=== PATIENT | female | born 1945 | race Caucasian/White ===

== ENCOUNTER → 2020-02-22 | Outpatient (REF) | payer MEDICARE | LOC: M LAB REF 17:05 | PROVIDERS: ATTEND Physician Assistant | DX: D23.71 Other benign neoplasm of skin of right lower limb, including hip (principal) | CPT/HCPCS: 11102; 88305; G0463 ==

== ENCOUNTER → 2020-04-19 | Outpatient (REF) | payer MEDICARE | LOC: M LAB REF 17:05 | PROVIDERS: ATTEND Dermatology | DX: L90.5 Scar conditions and fibrosis of skin (principal) ==

== ENCOUNTER → 2021-12-11 | Outpatient (CLI) | payer MEDICARE | LOC: M PLAIMG 10:56 | PROVIDERS: ATTEND Student in an Organized Health Care Education/Training Program | DX: G30.1 Alzheimer's disease with late onset (principal); F02.80 Dementia in other diseases classified elsewhere, unspecified severity, without behavioral disturbance, psychotic disturbance, mood disturbance, and anxiety ==

== ENCOUNTER → 2023-01-20 | Outpatient (CLI) | payer MEDICARE ==
[~2023-01-20] MED LIST: DONE1TAB64 PO; FLUT50SP17 INH; LEVO88TA3 PO; LOSA50TA28 PO; MEMA10TA19 PO; MONT10TA97 PO; PANT40TA29 PO; SUCR1ORA PO; TREL1AER INH; ZOLO100T PO
== END ==
LOC: M ONCR 08:57
PROVIDERS: ATTEND General Practice
DX: C49.11 Malignant neoplasm of connective and soft tissue of right upper limb, including shoulder (principal); Z86.03 Personal history of neoplasm of uncertain behavior; Z15.09 Genetic susceptibility to other malignant neoplasm; Z71.2 Person consulting for explanation of examination or test findings; Z79.51 Long term (current) use of inhaled steroids; Z79.890 Hormone replacement therapy; Z79.899 Other long term (current) drug therapy; Z80.0 Family history of malignant neoplasm of digestive organs; Z80.3 Family history of malignant neoplasm of breast; Z80.41 Family history of malignant neoplasm of ovary; Z90.710 Acquired absence of both cervix and uterus

== ENCOUNTER → 2023-02-03 | Outpatient (CLI) | payer MEDICARE ==
[~2023-02-03] MED LIST changes: +ISOVUE-370 76% 100ML VIAL As Ordered ONE
== END ==
LOC: M RAD 13:12
PROVIDERS: ATTEND General Practice
DX: C49.11 Malignant neoplasm of connective and soft tissue of right upper limb, including shoulder (principal)
CPT/HCPCS: 71275; Q9967

== ENCOUNTER 2023-02-09 11:56 | Emergency (ER) | payer MEDICARE ==
[~2023-02-09 11:56] MED LIST changes: -ISOVUE-370 76% 100ML VIAL As Ordered ONE
[2023-02-09 12:33] LABS: VENOUS HCO3 21.7 MMOL/L (23.0-27.0); VENOUS O2 SATURATION 57.5 % (60.0-80.0); VENOUS PARTIAL PRESSURE CO2 42.1 mmHg (38.0-50.0); VENOUS PARTIAL PRESSURE O2 32.8 mmHg (30.0-50.0); VENOUS STANDARD HCO3 20.6 MMOL/L
[2023-02-09 12:38] LABS: BASO # 0.1 10^3/uL (0.0-0.2); BASO % 0.6 % (0.0-1.0); EOS # 0.2 10^3/uL (0.0-0.5); EOS % 1.6 % (0.0-3.0); HEMOGLOBIN 7.9 g/dl (12.0-15.5); LYMPH # 0.8 10^3/uL (1.5-5.0); LYMPH % 7.9 % (24.0-44.0); MEAN CORPUSCULAR HEMOGLOBIN 27.4 pg (27.0-33.0); MEAN CORPUSCULAR HGB CONC 31.6 g/dl (32.0-36.5); MEAN CORPUSCULAR VOLUME 86.8 fl (80.0-96.0); MONO # 0.8 10^3/uL (0.0-0.8); MONO % 7.4 % (2.0-8.0); NEUTROPHILS # 8.5 10^3/uL (1.5-8.5); NEUTROPHILS % 81.8 % (36.0-66.0); PLATELET COUNT, AUTOMATED 335 10^3/uL (150-450); RED BLOOD COUNT 2.88 10^6/uL (4.00-5.40); WHITE BLOOD COUNT 10.3 10^3/uL (4.0-10.0)
[2023-02-09 13:22] LABS: ALBUMIN 3.2 G/DL (3.2-5.2); ALKALINE PHOSPHATASE 119 U/L (46-116); ALT/SGPT 12 U/L (7.0-40); AST/SGOT 18 U/L (<34); BILIRUBIN,DIRECT 0.1 MG/DL (<0.4); BILIRUBIN,TOTAL 0.4 MG/DL (0.3-1.2); BLOOD UREA NITROGEN 35 MG/DL (9-23); CALCIUM LEVEL 9.6 MG/DL (8.3-10.6); CARBON DIOXIDE LEVEL 20 MMOL/L (20-31); CHLORIDE LEVEL 108 MMOL/L (98-107); CK-MB VALUE MASS 1.2 NG/ML (<3.6); CPK CREATINE PHOSPHOKINASE 34 U/L (34-145); CREATININE FOR GFR 1.13 MG/DL (0.55-1.30); GLOMERULAR FILTRATION RATE 49.4 (>39); GLUCOSE, FASTING 82 MG/DL (74-106); MB/CK RELATIVE INDEX 3.52 (< OR =4); POTASSIUM SERUM 4.2 MMOL/L (3.5-5.1); SODIUM LEVEL 140 MMOL/L (136-145); TOTAL PROTEIN 6.5 G/DL (5.7-8.2)
[2023-02-09 13:24] LABS: THYROID STIMULATING HORMONE 0.826 uIU/ML (0.55-4.78)
[2023-02-09 13:31] LABS: INR 1.12; PROTHROMBIN TIME 14.1 SECONDS (12.5-14.5)
[2023-02-09 14:02] LABS: PROCALCITONIN <0.04 ng/ml
[2023-02-09 14:27] LABS: IRON (FE) 21 UG/DL (50-170); PERCENT SATURATION 7.3 % (13.2-45.0); TOTAL IRON BINDING CAPACITY 286 UG/DL (250-425)
[2023-02-09 14:28] LABS: FERRITIN 195.7 NG/ML (7.3-270.7)
[2023-02-09 14:29] LABS: VITAMIN B12 LEVEL 538 PG/ML (211-911)
[2023-02-09 17:14] VITALS: BP 117/55; TEMP 97.7; O2SAT 97
[2023-02-09 17:29] VITALS: BP 121/58; TEMP 97.3; O2SAT 96
[2023-02-09 18:27] VITALS: BP 127/59; TEMP 97.3; O2SAT 99
[2023-02-09 18:48] VITALS: BP 111/52; TEMP 97.2; O2SAT 98
[2023-02-09 20:07] VITALS: BP 123/60; TEMP 98.4; O2SAT 98
[2023-02-16] MEDS ORDERED: METR0.7526 TOP (09:32)
== END 2023-02-09 20:07 | disposition home or self-care (01) ==
LOC: M ED 11:56
DX: D64.9 Anemia, unspecified (principal); W19.XXXA Unspecified fall, initial encounter; R00.1 Bradycardia, unspecified; F03.90 Unspecified dementia, unspecified severity, without behavioral disturbance, psychotic disturbance, mood disturbance, and anxiety; I10 Essential (primary) hypertension; K21.9 Gastro-esophageal reflux disease without esophagitis; J45.909 Unspecified asthma, uncomplicated; Z87.891 Personal history of nicotine dependence; Z88.0 Allergy status to penicillin; Z79.811 Long term (current) use of aromatase inhibitors; Z79.899 Other long term (current) drug therapy; Z79.810 Long term (current) use of selective estrogen receptor modulators (SERMs); Z92.3 Personal history of irradiation
CPT/HCPCS: 36415; 70450; 71045; 71250; 72125; 80048; 80076; 82550; 82553; 82607; 82728; 82803; 83550; 83605; 83880; 84145; 84443; 84484; 85025; 85046; 85610; 86850; 86900; 86901; 86920; 87040; 87486; 87581; 87633; 87798; 93005; 93041; 94760; 99285; P9016

== ENCOUNTER → 2023-02-18 | Outpatient (RCR) | payer MEDICARE ==
[2023-02-02 16:33] LABS: BASO % 0.7 % (0.0-1.0); EOS % 1.9 % (0.0-3.0); HEMATOCRIT 29.2 % (36.0-47.0); HEMOGLOBIN 9.3 g/dl (12.0-15.5); LYMPH % 11.8 % (24.0-44.0); MEAN CORPUSCULAR HEMOGLOBIN 27.8 pg (27.0-33.0); MEAN CORPUSCULAR HGB CONC 31.8 g/dl (32.0-36.5); MEAN CORPUSCULAR VOLUME 87.4 fl (80.0-96.0); MONO % 10.7 % (2.0-8.0); NEUTROPHILS % 73.4 % (36.0-66.0); PLATELET COUNT, AUTOMATED 280 10^3/uL (150-450); RED BLOOD COUNT 3.34 10^6/uL (4.00-5.40); WHITE BLOOD COUNT 11.8 10^3/uL (4.0-10.0)
[2023-02-02 16:34] LABS: BASO # 0.1 10^3/uL (0.0-0.2); EOS # 0.2 10^3/uL (0.0-0.5); LYMPH # 1.4 10^3/uL (1.5-5.0); MONO # 1.3 10^3/uL (0.0-0.8); NEUTROPHILS # 8.7 10^3/uL (1.5-8.5)
[2023-02-02 16:46] LABS: INR 1.17; PROTHROMBIN TIME 14.5 SECONDS (12.5-14.5)
[2023-02-02 16:57] LABS: ALBUMIN 3.3 G/DL (3.2-5.2); BILIRUBIN,TOTAL 0.4 MG/DL (0.3-1.2); CALCIUM LEVEL 9.6 MG/DL (8.3-10.6); CREATININE FOR GFR 0.96 MG/DL (0.55-1.30); GLOMERULAR FILTRATION RATE 59.7 (>39); TOTAL PROTEIN 6.7 G/DL (5.7-8.2)
[2023-02-09 10:38] LABS: BASO # 0.1 10^3/uL (0.0-0.2); BASO % 0.8 % (0.0-1.0); EOS # 0.3 10^3/uL (0.0-0.5); EOS % 2.8 % (0.0-3.0); HEMATOCRIT 24.6 % (36.0-47.0); HEMOGLOBIN 7.7 g/dl (12.0-15.5); LYMPH # 0.8 10^3/uL (1.5-5.0); LYMPH % 6.9 % (24.0-44.0); MEAN CORPUSCULAR HEMOGLOBIN 27.5 pg (27.0-33.0); MEAN CORPUSCULAR HGB CONC 31.3 g/dl (32.0-36.5); MEAN CORPUSCULAR VOLUME 87.9 fl (80.0-96.0); MONO # 0.9 10^3/uL (0.0-0.8); MONO % 8.4 % (2.0-8.0); NEUTROPHILS # 8.7 10^3/uL (1.5-8.5); NEUTROPHILS % 80.5 % (36.0-66.0); PLATELET COUNT, AUTOMATED 341 10^3/uL (150-450); WHITE BLOOD COUNT 10.8 10^3/uL (4.0-10.0)
[2023-02-09 11:00] LABS: BILIRUBIN,TOTAL 0.4 MG/DL (0.3-1.2); CALCIUM LEVEL 9.5 MG/DL (8.3-10.6); CREATININE FOR GFR 1.15 MG/DL (0.55-1.30); GLOMERULAR FILTRATION RATE 48.5 (>39); TOTAL PROTEIN 6.3 G/DL (5.7-8.2)
[~2023-02-18] MED LIST changes: -FLUT50SP17 INH; +FLUTISP INH; +METR0.7526 TOP; +MORP1SOL4 PO
== END ==
LOC: M ONCR 01-25 14:26
PROVIDERS: ATTEND General Practice
DX: Z51.0 Encounter for antineoplastic radiation therapy (principal); C49.11 Malignant neoplasm of connective and soft tissue of right upper limb, including shoulder

== ENCOUNTER 2023-03-05 12:44 | Emergency (ER) | payer MEDICARE ==
[~2023-03-05] VITALS: Ht 170.2 cm; Wt 57.2 kg
[~2023-03-05 12:44] MED LIST changes: -MORP1SOL4 PO
[2023-03-05] MEDS ORDERED: NS 1,000 ML IV ONE (13:35)
[2023-03-05 14:27] LABS: RSV AMPLIFICATION NEGATIVE (NEGATIVE)
[2023-03-05] MEDS ORDERED: cefTRIAXone SOD 2 GM in D5W MINI-BAG PLUS 50 ML IV ONE (14:35)
[2023-03-05] MEDS ORDERED: NS IV ONE (14:45)
[2023-03-05 15:21] VITALS: BP 109/58; TEMP 97.5; O2SAT 98
[2023-03-05 15:44] VITALS: BP 107/53; TEMP 97
[2023-03-05 16:37] VITALS: BP 133/63; TEMP 96.8; O2SAT 100
[2023-03-05 17:32] VITALS: BP 121/57; TEMP 96.4; O2SAT 98
[2023-03-05 18:00] VITALS: BP 119/56; TEMP 97; O2SAT 99
== END 2023-03-05 18:33 | disposition home or self-care (01) ==
LOC: M ED 12:44
DX: I95.9 Hypotension, unspecified (principal); E86.0 Dehydration; D64.9 Anemia, unspecified; C96.4 Sarcoma of dendritic cells (accessory cells); R00.1 Bradycardia, unspecified; J45.909 Unspecified asthma, uncomplicated; K21.9 Gastro-esophageal reflux disease without esophagitis; F10.10 Alcohol abuse, uncomplicated; Z87.891 Personal history of nicotine dependence; Z88.0 Allergy status to penicillin; Z91.040 Latex allergy status; Z79.899 Other long term (current) drug therapy; Z79.810 Long term (current) use of selective estrogen receptor modulators (SERMs); Z79.811 Long term (current) use of aromatase inhibitors
CPT/HCPCS: 36430; 71045; 83605; 87040; 87631; 93005; 93041; 94760; 99285; J0696; P9016

== ENCOUNTER 2023-03-09 08:47 | Outpatient (RCR) | payer MEDICARE ==
[2023-02-22 10:24] LABS: BASO # 0.1 10^3/uL (0.0-0.2); BASO % 0.3 % (0.0-1.0); EOS # 0.3 10^3/uL (0.0-0.5); EOS % 2.1 % (0.0-3.0); HEMATOCRIT 26.4 % (36.0-47.0); HEMOGLOBIN 8.3 g/dl (12.0-15.5); LYMPH # 0.4 10^3/uL (1.5-5.0); LYMPH % 2.5 % (24.0-44.0); MEAN CORPUSCULAR HEMOGLOBIN 27.4 pg (27.0-33.0); MEAN CORPUSCULAR HGB CONC 31.4 g/dl (32.0-36.5); MEAN CORPUSCULAR VOLUME 87.1 fl (80.0-96.0); MONO # 1.1 10^3/uL (0.0-0.8); MONO % 7.6 % (2.0-8.0); NEUTROPHILS # 12.6 10^3/uL (1.5-8.5); NEUTROPHILS % 86.9 % (36.0-66.0); PLATELET COUNT, AUTOMATED 300 10^3/uL (150-450); RED BLOOD COUNT 3.03 10^6/uL (4.00-5.40); WHITE BLOOD COUNT 14.5 10^3/uL (4.0-10.0)
[2023-02-22 10:52] LABS: ALBUMIN 2.4 G/DL (3.2-5.2); BILIRUBIN,TOTAL 0.7 MG/DL (0.3-1.2); CALCIUM LEVEL 9.1 MG/DL (8.3-10.6); CREATININE FOR GFR 1.06 MG/DL (0.55-1.30); GLOMERULAR FILTRATION RATE 53.2 (>39); POTASSIUM SERUM 4.2 MMOL/L (3.5-5.1); TOTAL PROTEIN 6.3 G/DL (5.7-8.2)
[2023-03-05 10:17] LABS: BASO # 0.1 10^3/uL (0.0-0.2); BASO % 0.4 % (0.0-1.0); EOS # 0.2 10^3/uL (0.0-0.5); EOS % 1.4 % (0.0-3.0); HEMATOCRIT 24.1 % (36.0-47.0); HEMOGLOBIN 7.4 g/dl (12.0-15.5); LYMPH # 0.3 10^3/uL (1.5-5.0); LYMPH % 2.4 % (24.0-44.0); MEAN CORPUSCULAR HEMOGLOBIN 26.1 pg (27.0-33.0); MEAN CORPUSCULAR HGB CONC 30.7 g/dl (32.0-36.5); MEAN CORPUSCULAR VOLUME 84.9 fl (80.0-96.0); MONO # 0.9 10^3/uL (0.0-0.8); MONO % 6.8 % (2.0-8.0); NEUTROPHILS % 88.4 % (36.0-66.0); PLATELET COUNT, AUTOMATED 326 10^3/uL (150-450); RED BLOOD COUNT 2.84 10^6/uL (4.00-5.40); WHITE BLOOD COUNT 12.4 10^3/uL (4.0-10.0)
[2023-03-05 10:40] LABS: ALBUMIN 2.3 G/DL (3.2-5.2); BILIRUBIN,TOTAL 0.4 MG/DL (0.3-1.2); CALCIUM LEVEL 9.8 MG/DL (8.3-10.6); CREATININE FOR GFR 1.15 MG/DL (0.55-1.30); GLOMERULAR FILTRATION RATE 48.5 (>39); POTASSIUM SERUM 4.1 MMOL/L (3.5-5.1); TOTAL PROTEIN 6.2 G/DL (5.7-8.2)
[2023-03-05 12:05] VITALS: BP 67/34; TEMP 97.5; O2SAT 99
[~2023-03-09 08:47] MED LIST changes: +ACETAMINOPHEN 500 MG TAB PO ONE; +NS 1,000 ML IV ONE; +dexAMETHasone 20MG/5ML VIAL IV ONE
[2023-03-17] MEDS ORDERED: MORP1SOL4 PO (09:22)
== END 2023-03-21 ==
LOC: M ONCR 08:47
PROVIDERS: ATTEND General Practice
DX: C49.11 Malignant neoplasm of connective and soft tissue of right upper limb, including shoulder (principal)
CPT/HCPCS: 36430; 77300; 77334; 77336; 77338; 77386; 80053; 85025; 86850; 86900; 86901; 86920; J1100; P9016

== ENCOUNTER → 2023-03-12 | Outpatient (CLI) | payer MEDICARE ==
[~2023-03-12] MED LIST changes: -ACETAMINOPHEN 500 MG TAB PO ONE; +MORP1SOL4 PO; -NS 1,000 ML IV ONE; -dexAMETHasone 20MG/5ML VIAL IV ONE
== END ==
LOC: M ONCR 09:09
PROVIDERS: ATTEND General Practice
DX: L58.9 Radiodermatitis, unspecified (principal); W88.8XXA Exposure to other ionizing radiation, initial encounter; R23.4 Changes in skin texture; Z92.3 Personal history of irradiation

== ENCOUNTER → 2023-03-17 | Outpatient (CLI) | payer MEDICARE | LOC: M ONCR 08:45 | PROVIDERS: ATTEND General Practice | DX: L58.9 Radiodermatitis, unspecified (principal); W88.8XXA Exposure to other ionizing radiation, initial encounter ==

== ENCOUNTER → 2023-03-19 | Outpatient (CLI) | payer MEDICARE | LOC: M ONCR 03-17 08:38 | PROVIDERS: ATTEND General Practice | DX: L58.9 Radiodermatitis, unspecified (principal); W88.8XXA Exposure to other ionizing radiation, initial encounter ==

== ENCOUNTER → 2023-03-24 | Outpatient (CLI) | payer MEDICARE | LOC: M ONCR 08:25 | PROVIDERS: ATTEND General Practice | DX: C49.11 Malignant neoplasm of connective and soft tissue of right upper limb, including shoulder (principal); Z85.048 Personal history of other malignant neoplasm of rectum, rectosigmoid junction, and anus; Z15.09 Genetic susceptibility to other malignant neoplasm; Z87.891 Personal history of nicotine dependence; Z88.0 Allergy status to penicillin; Z88.1 Allergy status to other antibiotic agents; Z91.040 Latex allergy status; Z79.51 Long term (current) use of inhaled steroids; Z79.899 Other long term (current) drug therapy; Z79.890 Hormone replacement therapy; Z92.3 Personal history of irradiation ==

== ENCOUNTER → 2023-03-29 | Outpatient (CLI) | payer MEDICARE | LOC: M ONCR 08:37 | PROVIDERS: ATTEND General Practice | DX: L59.8 Other specified disorders of the skin and subcutaneous tissue related to radiation (principal) ==

== ENCOUNTER → 2023-04-02 | Outpatient (CLI) | payer MEDICARE ==
[2023-04-02 12:48] LABS: BASO # 0.1 10^3/uL (0.0-0.2); BASO % 0.8 % (0.0-1.0); EOS # 0.3 10^3/uL (0.0-0.5); EOS % 2.7 % (0.0-3.0); HEMATOCRIT 28.4 % (36.0-47.0); LYMPH % 10.4 % (24.0-44.0); MEAN CORPUSCULAR HEMOGLOBIN 26.4 pg (27.0-33.0); MEAN CORPUSCULAR HGB CONC 31.7 g/dl (32.0-36.5); MEAN CORPUSCULAR VOLUME 83.3 fl (80.0-96.0); MONO # 1.1 10^3/uL (0.0-0.8); MONO % 11.3 % (2.0-8.0); NEUTROPHILS # 7.1 10^3/uL (1.5-8.5); NEUTROPHILS % 73.3 % (36.0-66.0); PLATELET COUNT, AUTOMATED 297 10^3/uL (150-450); RED BLOOD COUNT 3.41 10^6/uL (4.00-5.40); WHITE BLOOD COUNT 9.7 10^3/uL (4.0-10.0)
[2023-04-02 13:14] LABS: ALBUMIN 2.2 G/DL (3.2-5.2); ALKALINE PHOSPHATASE 154 U/L (46-116); ALT/SGPT 15 U/L (7.0-40); AST/SGOT 16 U/L (<34); BILIRUBIN,TOTAL 0.3 MG/DL (0.3-1.2); BLOOD UREA NITROGEN 14 MG/DL (9-23); CARBON DIOXIDE LEVEL 23 MMOL/L (20-31); CHLORIDE LEVEL 109 MMOL/L (98-107); CREATININE FOR GFR 0.87 MG/DL (0.55-1.30); GLOMERULAR FILTRATION RATE > 60.0 (>39); GLUCOSE, FASTING 122 MG/DL (74-106); POTASSIUM SERUM 3.2 MMOL/L (3.5-5.1); SODIUM LEVEL 137 MMOL/L (136-145); TOTAL PROTEIN 5.8 G/DL (5.7-8.2)
== END ==
LOC: M ONCR 11:56
PROVIDERS: ATTEND General Practice
DX: L59.8 Other specified disorders of the skin and subcutaneous tissue related to radiation (principal); Z79.899 Other long term (current) drug therapy
CPT/HCPCS: 36415; 80053; 85025; G0463

== ENCOUNTER → 2023-04-06 | Outpatient (CLI) | payer MEDICARE | LOC: M ONCR 08:22 | PROVIDERS: ATTEND General Practice | DX: L81.9 Disorder of pigmentation, unspecified (principal) ==

== ENCOUNTER → 2023-05-05 | Outpatient (CLI) | payer MEDICARE ==
[~2023-05-05] MED LIST changes: +CEPH500C PO
== END ==
LOC: M ONCR 09:13
PROVIDERS: ATTEND General Practice
DX: L53.9 Erythematous condition, unspecified (principal); C44.91 Basal cell carcinoma of skin, unspecified

== ENCOUNTER → 2023-05-11 | Outpatient (CLI) | payer MEDICARE | LOC: M ONCR 08:33 | PROVIDERS: ATTEND General Practice | DX: L53.9 Erythematous condition, unspecified (principal) ==

== ENCOUNTER → 2023-06-09 | Outpatient (CLI) | payer MEDICARE ==
[~2023-06-09] MED LIST changes: +JUVEPOW4 PO
== END ==
LOC: M ONCR 08:25
PROVIDERS: ATTEND General Practice
DX: Z48.3 Aftercare following surgery for neoplasm (principal)

== ENCOUNTER → 2023-07-06 | Outpatient (CLI) | payer MEDICARE ==
[~2023-07-06] MED LIST changes: +MEMA10TA PO; -MEMA10TA19 PO
== END ==
LOC: M RAD 10:08
PROVIDERS: ATTEND General Practice
DX: C49.11 Malignant neoplasm of connective and soft tissue of right upper limb, including shoulder (principal); N28.1 Cyst of kidney, acquired

== ENCOUNTER → 2023-07-13 | Outpatient (CLI) | payer MEDICARE | LOC: M ONCR 07:58 | PROVIDERS: ATTEND General Practice | DX: C49.11 Malignant neoplasm of connective and soft tissue of right upper limb, including shoulder (principal); C78.01 Secondary malignant neoplasm of right lung; R91.8 Other nonspecific abnormal finding of lung field; Z15.09 Genetic susceptibility to other malignant neoplasm; Z71.2 Person consulting for explanation of examination or test findings; Z79.51 Long term (current) use of inhaled steroids; Z79.890 Hormone replacement therapy; Z79.899 Other long term (current) drug therapy; Z85.038 Personal history of other malignant neoplasm of large intestine; Z87.891 Personal history of nicotine dependence; Z88.0 Allergy status to penicillin; Z88.1 Allergy status to other antibiotic agents; Z91.040 Latex allergy status; Z92.3 Personal history of irradiation; Z98.890 Other specified postprocedural states ==

== ENCOUNTER → 2023-09-07 | Outpatient (CLI) | payer MEDICARE | LOC: M ONCR 08:31 | PROVIDERS: ATTEND General Practice | DX: C49.11 Malignant neoplasm of connective and soft tissue of right upper limb, including shoulder (principal); C78.00 Secondary malignant neoplasm of unspecified lung; Z71.2 Person consulting for explanation of examination or test findings; Z15.09 Genetic susceptibility to other malignant neoplasm; Z85.040 Personal history of malignant carcinoid tumor of rectum; Z92.3 Personal history of irradiation; Z98.890 Other specified postprocedural states; Z79.620 Long term (current) use of immunosuppressive biologic; Z87.891 Personal history of nicotine dependence; Z88.0 Allergy status to penicillin; Z88.1 Allergy status to other antibiotic agents; Z91.040 Latex allergy status; Z79.51 Long term (current) use of inhaled steroids; Z79.891 Long term (current) use of opiate analgesic; Z79.899 Other long term (current) drug therapy; Z79.890 Hormone replacement therapy ==

== ENCOUNTER → 2023-12-17 | Outpatient (CLI) | payer MEDICARE | LOC: M ONCR 08:02 | PROVIDERS: ATTEND General Practice | DX: C49.11 Malignant neoplasm of connective and soft tissue of right upper limb, including shoulder (principal); C78.00 Secondary malignant neoplasm of unspecified lung; Z85.040 Personal history of malignant carcinoid tumor of rectum; Z15.09 Genetic susceptibility to other malignant neoplasm; Z92.3 Personal history of irradiation; Z79.620 Long term (current) use of immunosuppressive biologic; Z79.51 Long term (current) use of inhaled steroids; Z79.890 Hormone replacement therapy; Z79.899 Other long term (current) drug therapy; Z87.891 Personal history of nicotine dependence; Z88.0 Allergy status to penicillin; Z88.1 Allergy status to other antibiotic agents; Z91.040 Latex allergy status; Z98.890 Other specified postprocedural states ==

== ENCOUNTER → 2024-02-08 | Outpatient (CLI) | payer MEDICARE ==
[~2024-02-08] MED LIST changes: +GASTROGRAFIN SOLUTION 30ML As Ordered ONE; +ISOVUE-370 76% 100ML VIAL As Ordered ONE
== END ==
LOC: M RAD 14:42
PROVIDERS: ATTEND Nurse Practitioner Family
DX: C49.9 Malignant neoplasm of connective and soft tissue, unspecified (principal)
CPT/HCPCS: 71260; 74177; Q9967

== ENCOUNTER → 2024-03-17 | Outpatient (CLI) | payer MEDICARE ==
[~2024-03-17] MED LIST changes: -GASTROGRAFIN SOLUTION 30ML As Ordered ONE; -ISOVUE-370 76% 100ML VIAL As Ordered ONE
== END ==
LOC: M ONCR 08:29
PROVIDERS: ATTEND General Practice
DX: C49.11 Malignant neoplasm of connective and soft tissue of right upper limb, including shoulder (principal); C78.00 Secondary malignant neoplasm of unspecified lung; Z92.3 Personal history of irradiation; Z85.038 Personal history of other malignant neoplasm of large intestine; Z15.09 Genetic susceptibility to other malignant neoplasm; Z88.0 Allergy status to penicillin; Z88.1 Allergy status to other antibiotic agents; Z91.040 Latex allergy status; Z79.51 Long term (current) use of inhaled steroids; Z79.899 Other long term (current) drug therapy; Z79.890 Hormone replacement therapy; Z79.620 Long term (current) use of immunosuppressive biologic; Z87.891 Personal history of nicotine dependence; Z98.890 Other specified postprocedural states

== ENCOUNTER 2024-04-18 12:28 | Inpatient (IN) | payer MEDICARE ==
[2024-04-17] MEDS: NYSTATIN 100,000 UNITS/GM TOPICAL PWD 15GM TOP SCH (21:00)
[~2024-04-18] VITALS: Ht 175.3 cm; Wt 56.6 kg
[2024-04-18] MEDS: NS (Normal Saline) 0.9% 1,000 ML IV ONE ×2 (12:50→15:05)
[2024-04-18 13:15] LABS: BASO # 0.1 10^3/uL (0.0-0.2); BASO % 0.6 % (0.0-1.0); EOS # 0.8 10^3/uL (0.0-0.5); EOS % 5.4 % (0.0-3.0); HEMATOCRIT 33.7 % (36.0-47.0); HEMOGLOBIN 11.1 g/dl (12.0-15.5); LYMPH # 1.1 10^3/uL (1.5-5.0); LYMPH % 7.5 % (24.0-44.0); MEAN CORPUSCULAR HEMOGLOBIN 26.4 pg (27.0-33.0); MEAN CORPUSCULAR HGB CONC 32.9 g/dl (32.0-36.5); MONO % 7.2 % (2.0-8.0); NEUTROPHILS # 11.3 10^3/uL (1.5-8.5); NEUTROPHILS % 78.9 % (36.0-66.0); PLATELET COUNT, AUTOMATED 388 10^3/uL (150-450); RED BLOOD COUNT 4.21 10^6/uL (4.00-5.40); WHITE BLOOD COUNT 14.3 10^3/uL (4.0-10.0)
[2024-04-18 13:28] LABS: KETONE, URINE AUTO RFX NEGATIVE (NEGATIVE); LEUKOCYTE ESTERASE UR AUTO RFX NEGATIVE (NEGATIVE); NITRITE, URINE AUTO RFX NEGATIVE (NEGATIVE); RBC, URINE AUTO RFX 0 /HPF (0-3); SQUAM EPITHELIAL CELL UR AURFX 0 /HPF (0-6); WBC, URINE AUTO RFX 1 /HPF (0-3)
[2024-04-18 13:42] LABS: HCG, SERUM QUALITATIVE NEGATIVE (NEGATIVE)
[2024-04-18 13:50] LABS: ALKALINE PHOSPHATASE 158 U/L (35-104); ALT/SGPT 17 U/L (7.0-40); AST/SGOT 17 U/L (<34); BILIRUBIN,DIRECT 0.1 MG/DL (<0.4); BILIRUBIN,TOTAL 0.5 MG/DL (0.3-1.2); BLOOD UREA NITROGEN 107 MG/DL (9-23); CALCIUM LEVEL 9.5 MG/DL (8.3-10.6); CARBON DIOXIDE LEVEL 15 MMOL/L (20-31); CHLORIDE LEVEL 96 MMOL/L (98-107); CK-MB VALUE MASS 2.2 NG/ML (<3.6); CPK CREATINE PHOSPHOKINASE 58 U/L (34-145); GLUCOSE, FASTING 93 MG/DL (74-106); MB/CK RELATIVE INDEX 3.79 (< OR =4); POTASSIUM SERUM 3.1 MMOL/L (3.5-5.1); SODIUM LEVEL 132 MMOL/L (136-145); THYROID STIMULATING HORMONE 0.455 uIU/ML (0.55-4.78); TOTAL PROTEIN 7.8 G/DL (5.7-8.2)
[2024-04-18] MEDS: cefTRIAXone SOD 2 GM in DEXTROSE 5% (D5W) ADV/MINI-BAG 50 ML IV ONE (13:57)
[2024-04-18] MEDS: NS 0.9% IV ONE (14:02)
[2024-04-18] MEDS: [UNRECOGNIZED DRUG - OTHER] IV ONE (14:02)
[2024-04-18 14:20] LABS: ALBUMIN 3.6 G/DL (3.2-5.2)
[2024-04-18] MEDS: POTASSIUM CHLORIDE 10MEQ SR TABLET PO ONE (14:50)
[2024-04-18] MEDS ORDERED: ASPI-615 PO (15:07)
[2024-04-18] MEDS ORDERED: ALLE60TA69 PO (15:07)
[2024-04-18] MEDS ORDERED: DILT180C78 PO (15:07)
[2024-04-18] MEDS ORDERED: VITA1CHW7 PO (15:07)
[2024-04-18] MEDS ORDERED: THERTAB52 PO (15:07)
[2024-04-18] MEDS ORDERED: VITA1TAB78 PO (15:07)
[2024-04-18] MEDS ORDERED: MUCI600T31 PO (15:07)
[2024-04-18] MEDS ORDERED: FERR325T3 PO (15:07)
[2024-04-18] MEDS ORDERED: LEVO100T5 PO (15:07)
[2024-04-18] MEDS ORDERED: D-20TAB PO (15:08)
[2024-04-18] MEDS ORDERED: HOME MED LIST COMPLETE! XX SCH (15:20)
[2024-04-18] MEDS: NS (Normal Saline) 0.9% 1,000 ML IV SCH (16:09)
[2024-04-18] MEDS ORDERED: MAALOX 30 ML SUSP *UDC PO PRN (17:20)
[2024-04-18] MEDS ORDERED: MOM 30ML SUSPENSION UDC PO PRN (17:20)
[2024-04-18] MEDS: MIDODRINE 5 MG TAB PO SCH (17:43)
[2024-04-18 18:31] VITALS: BP 107/55; TEMP 97.6; O2SAT 99
[2024-04-18 19:00] VITALS: BP 124/55; TEMP 97.6; O2SAT 100
[2024-04-18 19:06] LABS: C REACTIVE PROTEIN QUANTITATIV 5.96 MG/DL (<1.0)
[2024-04-18 19:17] LABS: PROCALCITONIN 0.28 ng/ml
[2024-04-18 19:59] VITALS: BP 141/64; TEMP 97.1; O2SAT 100
[2024-04-18] MEDS ORDERED: MIDODRINE 5 MG TAB PO PRN (21:00)
[2024-04-18] MEDS: HEPARIN SOD (PORCINE) 5000UNITS/ML 1ML VIAL/SYRINGE SC SCH (21:13)
[2024-04-18] MEDS: SODIUM BICARBONATE 75 MEQ in NS 0.45% 1,000 ML IV SCH (21:14)
[2024-04-18 22:45] LABS: CALCIUM LEVEL 8.1 MG/DL (8.3-10.6); CREATININE FOR GFR 3.42 MG/DL (0.55-1.30); GLOMERULAR FILTRATION RATE 13.7 (>32); POTASSIUM SERUM 2.8 MMOL/L (3.5-5.1)
[2024-04-18 23:14] VITALS: BP 96/50; TEMP 97.2; O2SAT 97
[2024-04-19] MEDS: HALOPERIDOL LACTATE 5MG/ML VIAL IM STA (00:09)
[2024-04-19] MEDS: KCL 10MEQ/100ML SWI (KRUN) 10 MEQ in IV 1 EA IV SCH (03:02)
[2024-04-19 04:06] VITALS: BP 105/52; TEMP 96.8; O2SAT 97
[2024-04-19 06:16] LABS: CALCIUM LEVEL 8.2 MG/DL (8.3-10.6); CREATININE FOR GFR 2.86 MG/DL (0.55-1.30); GLOMERULAR FILTRATION RATE 16.9 (>32); MAGNESIUM LEVEL 2.6 MG/DL (1.8-2.4); POTASSIUM SERUM 3.6 MMOL/L (3.5-5.1)
[2024-04-19] MEDS ORDERED: GLUCAGON INJ 1MG VIAL SC PRN (06:55)
[2024-04-19] MEDS ORDERED: GLUCOSE 4 GM CHEW PO PRN (06:55)
[2024-04-19] MEDS ORDERED: DEXTROSE 50% 50ML SYRINGE IV PRN (06:55)
[2024-04-19 07:13] VITALS: BP 126/60; TEMP 97; O2SAT 98
[2024-04-19] MEDS ORDERED: FLUTICASONE PROP 0.05% NASAL SPRAY 16 GM (FLONASE) PRN (07:25)
[2024-04-19] MEDS: LEVOTHYROXINE 100MCG TABLET (0.1MG) PO SCH (08:10)
[2024-04-19 09:32] LABS: BASO # 0.1 10^3/uL (0.0-0.2); BASO % 0.7 % (0.0-1.0); EOS # 0.6 10^3/uL (0.0-0.5); EOS % 6.2 % (0.0-3.0); HEMATOCRIT 27.9 % (36.0-47.0); LYMPH # 1.1 10^3/uL (1.5-5.0); LYMPH % 10.7 % (24.0-44.0); MEAN CORPUSCULAR HEMOGLOBIN 26.5 pg (27.0-33.0); MEAN CORPUSCULAR HGB CONC 32.3 g/dl (32.0-36.5); MEAN CORPUSCULAR VOLUME 82.3 fl (80.0-96.0); MONO # 0.9 10^3/uL (0.0-0.8); MONO % 8.8 % (2.0-8.0); NEUTROPHILS # 7.2 10^3/uL (1.5-8.5); NEUTROPHILS % 73.2 % (36.0-66.0); PLATELET COUNT, AUTOMATED 318 10^3/uL (150-450); RED BLOOD COUNT 3.39 10^6/uL (4.00-5.40); WHITE BLOOD COUNT 9.9 10^3/uL (4.0-10.0)
[2024-04-19] MEDS: FEXOFENADINE 60MG TAB PO SCH (10:00)
[2024-04-19] MEDS: ASPIRIN 81MG ENTERIC TABLET PO SCH (10:00)
[2024-04-19] MEDS: FERROUS SULFATE 325MG TAB PO SCH (10:00)
[2024-04-19] MEDS: PANTOPRAZOLE 40MG TAB (PROTONIX) PO SCH (10:01)
[2024-04-19] MEDS: SERTRALINE 100 MG TAB PO SCH (10:01)
[2024-04-19] MEDS: MONTELUKAST 10 MG TAB PO SCH (10:01)
[2024-04-19 11:41] VITALS: BP 118/54; TEMP 98.1; O2SAT 97
[2024-04-19] MEDS: cefTRIAXone SOD 2 GM in DEXTROSE 5% (D5W) ADV/MINI-BAG 50 ML IV SCH (14:29)
[2024-04-19 15:52] VITALS: BP 123/53; TEMP 97.9; O2SAT 96
[2024-04-19 19:47] VITALS: BP 135/62; TEMP 97.8; O2SAT 97
[2024-04-20 00:11] VITALS: BP 130/59; TEMP 96.9; O2SAT 98
[2024-04-20 03:40] VITALS: BP 111/56; TEMP 97; O2SAT 98
[2024-04-20 06:58] LABS: BASO # 0.1 10^3/uL (0.0-0.2); EOS # 0.7 10^3/uL (0.0-0.5); EOS % 8.1 % (0.0-3.0); HEMATOCRIT 24.9 % (36.0-47.0); HEMOGLOBIN 8.1 g/dl (12.0-15.5); LYMPH # 1.1 10^3/uL (1.5-5.0); LYMPH % 13.4 % (24.0-44.0); MEAN CORPUSCULAR HGB CONC 32.5 g/dl (32.0-36.5); MEAN CORPUSCULAR VOLUME 80.1 fl (80.0-96.0); MONO % 12.7 % (2.0-8.0); NEUTROPHILS # 5.1 10^3/uL (1.5-8.5); NEUTROPHILS % 64.2 % (36.0-66.0); PLATELET COUNT, AUTOMATED 272 10^3/uL (150-450); RED BLOOD COUNT 3.11 10^6/uL (4.00-5.40)
[2024-04-20 07:29] VITALS: BP 109/53; TEMP 97.6; O2SAT 96
[2024-04-20 07:33] LABS: CALCIUM LEVEL 7.9 MG/DL (8.3-10.6); CREATININE FOR GFR 1.38 MG/DL (0.55-1.30); GLOMERULAR FILTRATION RATE 39.2 (>32); MAGNESIUM LEVEL 1.9 MG/DL (1.8-2.4); POTASSIUM SERUM 2.7 MMOL/L (3.5-5.1)
[2024-04-20] MEDS: POTASSIUM CHLORIDE 10MEQ SR TABLET PO ONE ×2 (08:25→18:10)
[2024-04-20] MEDS: KCL 10MEQ/100ML SWI (KRUN) 10 MEQ in IV 1 EA IV SCH (08:25)
[2024-04-20] MEDS: LOPERAMIDE 2 MG CAPLET PO PRN (11:06)
[2024-04-20 11:46] VITALS: BP 121/59; TEMP 98; O2SAT 98
[2024-04-20] MEDS: ACETAMINOPHEN 325 MG TAB PO PRN (15:00)
[2024-04-20 15:11] LABS: CALCIUM LEVEL 8.4 MG/DL (8.3-10.6); CREATININE FOR GFR 1.17 MG/DL (0.55-1.30); GLOMERULAR FILTRATION RATE 47.4 (>32); POTASSIUM SERUM 3.4 MMOL/L (3.5-5.1)
[2024-04-20 15:41] VITALS: BP 103/52; TEMP 98.4; O2SAT 97
[2024-04-20 20:08] VITALS: BP 117/56; TEMP 97.3; O2SAT 96
[2024-04-20] MEDS: METAMUCIL (PSYLLIUM) PACKET PO SCH (21:00)
[2024-04-21 00:24] VITALS: BP 107/55; TEMP 97.7; O2SAT 94
[2024-04-21 04:49] VITALS: BP 120/60; TEMP 97; O2SAT 96
[2024-04-21 07:02] LABS: BASO # 0.1 10^3/uL (0.0-0.2); BASO % 0.9 % (0.0-1.0); EOS % 10.4 % (0.0-3.0); HEMOGLOBIN 8.1 g/dl (12.0-15.5); LYMPH # 1.5 10^3/uL (1.5-5.0); LYMPH % 16.3 % (24.0-44.0); MEAN CORPUSCULAR HEMOGLOBIN 26.9 pg (27.0-33.0); MEAN CORPUSCULAR HGB CONC 32.4 g/dl (32.0-36.5); MEAN CORPUSCULAR VOLUME 83.1 fl (80.0-96.0); MONO # 1.3 10^3/uL (0.0-0.8); MONO % 13.8 % (2.0-8.0); NEUTROPHILS # 5.4 10^3/uL (1.5-8.5); NEUTROPHILS % 58.3 % (36.0-66.0); PLATELET COUNT, AUTOMATED 294 10^3/uL (150-450); RED BLOOD COUNT 3.01 10^6/uL (4.00-5.40); WHITE BLOOD COUNT 9.3 10^3/uL (4.0-10.0)
[2024-04-21 07:28] LABS: CREATININE FOR GFR 1.13 MG/DL (0.55-1.30); GLOMERULAR FILTRATION RATE 49.3 (>32); MAGNESIUM LEVEL 1.8 MG/DL (1.8-2.4); POTASSIUM SERUM 3.7 MMOL/L (3.5-5.1)
[2024-04-21 08:24] VITALS: BP 125/60; TEMP 99.2; O2SAT 97
[2024-04-21] MEDS ORDERED: E-Z-PAQUE 96% w/w SUSP 176GM BTL As Ordered ONE (11:17)
[2024-04-21] MEDS ORDERED: VARIBAR NECTAR 40% w/v 240ML SUSP BTL As Ordered ONE (11:17)
[2024-04-21] MEDS ORDERED: VARIBAR PUDDING 40% w/v 230ML TUBE As Ordered ONE (11:17)
[2024-04-21] MEDS ORDERED: BARIUM SULFATE 700 MG TABLET (E-Z-DISK) As Ordered ONE (11:17)
[2024-04-21 12:45] VITALS: BP 123/56; TEMP 99.1; O2SAT 98
[2024-04-21 16:27] VITALS: BP 122/62; TEMP 98.3; O2SAT 97
[2024-04-21 20:59] VITALS: BP 107/55; TEMP 98; O2SAT 96
[2024-04-22 03:33] VITALS: BP 108/53; TEMP 97.6; O2SAT 97
[2024-04-22 06:13] LABS: BASO # 0.1 10^3/uL (0.0-0.2); BASO % 0.8 % (0.0-1.0); EOS # 1.2 10^3/uL (0.0-0.5); HEMATOCRIT 24.3 % (36.0-47.0); HEMOGLOBIN 7.6 g/dl (12.0-15.5); LYMPH # 1.5 10^3/uL (1.5-5.0); LYMPH % 13.6 % (24.0-44.0); MEAN CORPUSCULAR HGB CONC 31.3 g/dl (32.0-36.5); MEAN CORPUSCULAR VOLUME 83.2 fl (80.0-96.0); MONO # 1.4 10^3/uL (0.0-0.8); MONO % 12.8 % (2.0-8.0); NEUTROPHILS # 6.6 10^3/uL (1.5-8.5); NEUTROPHILS % 61.4 % (36.0-66.0); PLATELET COUNT, AUTOMATED 266 10^3/uL (150-450); RED BLOOD COUNT 2.92 10^6/uL (4.00-5.40); WHITE BLOOD COUNT 10.7 10^3/uL (4.0-10.0)
[2024-04-22 06:36] LABS: CALCIUM LEVEL 9.1 MG/DL (8.3-10.6); CREATININE FOR GFR 0.97 MG/DL (0.55-1.30); GLOMERULAR FILTRATION RATE 58.8 (>32); MAGNESIUM LEVEL 1.6 MG/DL (1.8-2.4); POTASSIUM SERUM 4.1 MMOL/L (3.5-5.1)
[2024-04-22 08:00] VITALS: BP 113/54; TEMP 97.5; O2SAT 97
[2024-04-22] MEDS: MAGNESIUM OXIDE 400MG TAB (MAG-OX) PO SCH (08:21)
[2024-04-22] MEDS: DOXYCYCLINE HYCLATE 100MG TABLET PO SCH (08:22)
[2024-04-22] MEDS: MAG SULF 1GM/100ML (MAG RUN) 1 GM in IV 1 EA IV SCH (08:22)
[2024-04-22 12:00] VITALS: BP 112/60; TEMP 97.6; O2SAT 96
[2024-04-22 13:35] LABS: BASO # 0.1 10^3/uL (0.0-0.2); EOS # 1.2 10^3/uL (0.0-0.5); EOS % 10.1 % (0.0-3.0); HEMATOCRIT 28.8 % (36.0-47.0); LYMPH # 1.5 10^3/uL (1.5-5.0); MEAN CORPUSCULAR HEMOGLOBIN 26.5 pg (27.0-33.0); MEAN CORPUSCULAR HGB CONC 31.3 g/dl (32.0-36.5); MONO # 1.2 10^3/uL (0.0-0.8); MONO % 10.6 % (2.0-8.0); NEUTROPHILS # 7.5 10^3/uL (1.5-8.5); NEUTROPHILS % 64.9 % (36.0-66.0); PLATELET COUNT, AUTOMATED 296 10^3/uL (150-450); RED BLOOD COUNT 3.39 10^6/uL (4.00-5.40); WHITE BLOOD COUNT 11.5 10^3/uL (4.0-10.0)
[2024-04-22 14:07] LABS: PERCENT SATURATION 10.4 % (13.2-45.0)
[2024-04-22 16:00] VITALS: BP 145/67; TEMP 97.6; O2SAT 99
[2024-04-22] MEDS: D5W/0.9% SODIUM CHLORIDE 1,000 ML IV SCH (17:54)
[2024-04-22 19:45] VITALS: BP 117/58; TEMP 98; O2SAT 99
[2024-04-23 04:59] VITALS: BP 129/58; TEMP 97.8; O2SAT 99
[2024-04-23 06:25] LABS: BASO # 0.1 10^3/uL (0.0-0.2); BASO % 0.8 % (0.0-1.0); EOS # 1.4 10^3/uL (0.0-0.5); EOS % 13.1 % (0.0-3.0); HEMATOCRIT 24.8 % (36.0-47.0); HEMOGLOBIN 7.8 g/dl (12.0-15.5); LYMPH # 1.5 10^3/uL (1.5-5.0); LYMPH % 13.7 % (24.0-44.0); MEAN CORPUSCULAR HEMOGLOBIN 26.5 pg (27.0-33.0); MEAN CORPUSCULAR HGB CONC 31.5 g/dl (32.0-36.5); MEAN CORPUSCULAR VOLUME 84.4 fl (80.0-96.0); MONO # 1.4 10^3/uL (0.0-0.8); MONO % 12.7 % (2.0-8.0); NEUTROPHILS # 6.3 10^3/uL (1.5-8.5); NEUTROPHILS % 59.2 % (36.0-66.0); PLATELET COUNT, AUTOMATED 276 10^3/uL (150-450); RED BLOOD COUNT 2.94 10^6/uL (4.00-5.40); WHITE BLOOD COUNT 10.7 10^3/uL (4.0-10.0)
[2024-04-23 08:00] VITALS: BP 116/54; TEMP 97.6; O2SAT 100
[2024-04-23] MEDS: IPRATROPIUM 0.5MG/ALBUTEROL 2.5MG INH SOL UD 3ML (DUONEB) NEB PRN (09:43)
[2024-04-23 10:29] LABS: HEMATOCRIT 27.5 % (36.0-47.0); HEMOGLOBIN 8.5 g/dl (12.0-15.5)
[2024-04-23 16:00] VITALS: BP 115/56; TEMP 97.5; O2SAT 100
[2024-04-23 17:41] VITALS: BP 116/56; TEMP 97.7; O2SAT 99
[2024-04-23 20:05] VITALS: BP 114/43; TEMP 97.5; O2SAT 98
[2024-04-23] MEDS: RAMELTEON 8 MG TAB (ROZEREM) PO SCH (20:15)
[2024-04-24] VITALS: BP 133/73; TEMP 97.9; O2SAT 100
[2024-04-24 05:02] VITALS: TEMP 97.7; O2SAT 94
[2024-04-24 08:00] VITALS: BP 122/55; TEMP 97.3; O2SAT 88
[2024-04-24 12:00] VITALS: BP 124/56; TEMP 97.5; O2SAT 98
[2024-04-24 16:00] VITALS: BP 125/67; TEMP 97.7; O2SAT 98
[2024-04-24 20:15] VITALS: BP 123/63; TEMP 97.7; O2SAT 100
[2024-04-25] VITALS: BP 120/54; TEMP 97.3; O2SAT 99
[2024-04-25 02:00] VITALS: BP 110/49; TEMP 97.2; O2SAT 97
[2024-04-25 04:04] VITALS: BP 110/49; TEMP 97.2; O2SAT 97
[2024-04-25 08:00] VITALS: BP 124/65; TEMP 97.3; O2SAT 96
[2024-04-25] MEDS ORDERED: DILT180C78 PO (11:30)
[2024-04-25] MEDS ORDERED: MAGN400T2 PO (11:30)
[2024-04-25] MEDS ORDERED: CEFD1CAP9 PO (11:31)
[2024-04-25] MEDS ORDERED: PROBCAP14 PO (11:31)
[2024-04-25] MEDS ORDERED: LOSA50TA28 PO (11:35)
== END 2024-04-25 11:57 | DRG 871 ==
LOC: M ED 12:28 → M ED INP 17:16 → M PCU 18:20 → M MSPAV 04-23 17:41
PROVIDERS: ADMIT Student in an Organized Health Care Education/Training Program; ATTEND Student in an Organized Health Care Education/Training Program
DX: A41.9 Sepsis, unspecified organism (principal); R57.1 Hypovolemic shock; R65.21 Severe sepsis with septic shock; E87.1 Hypo-osmolality and hyponatremia; N17.9 Acute kidney failure, unspecified; E87.20 Acidosis, unspecified; C40.02 Malignant neoplasm of scapula and long bones of left upper limb; E87.0 Hyperosmolality and hypernatremia; J44.9 Chronic obstructive pulmonary disease, unspecified; J45.909 Unspecified asthma, uncomplicated; G30.9 Alzheimer's disease, unspecified; F02.80 Dementia in other diseases classified elsewhere, unspecified severity, without behavioral disturbance, psychotic disturbance, mood disturbance, and anxiety; I49.5 Sick sinus syndrome; Z66 Do not resuscitate; E87.6 Hypokalemia; L98.429 Non-pressure chronic ulcer of back with unspecified severity; N18.9 Chronic kidney disease, unspecified; Z95.0 Presence of cardiac pacemaker; E83.42 Hypomagnesemia; Z92.21 Personal history of antineoplastic chemotherapy; Z92.3 Personal history of irradiation; R19.7 Diarrhea, unspecified; R13.10 Dysphagia, unspecified; Z79.899 Other long term (current) drug therapy; Z79.82 Long term (current) use of aspirin; F41.9 Anxiety disorder, unspecified; F32.A Depression, unspecified; D64.9 Anemia, unspecified

== ENCOUNTER → 2024-05-23 | Outpatient (REF) | payer MEDICARE ==
[~2024-05-23] MED LIST changes: +ALLE60TA69 PO; +ASPI-615 PO; +CEFD1CAP9 PO; +D-20TAB PO; +DILT180C78 PO; +FERR325T3 PO; +LEVO100T5 PO; +MAGN400T2 PO; +MUCI600T31 PO; +PROBCAP14 PO; +THERTAB52 PO; +VITA1CHW7 PO; +VITA1TAB78 PO
== END ==
LOC: SKLAB5 12:56
PROVIDERS: ATTEND Internal Medicine
DX: R05.9 Cough, unspecified (principal)

== ENCOUNTER 2024-08-03 21:48 | Emergency (ER) | payer MEDICARE ==
[~2024-08-03] VITALS: Ht 172.7 cm; Wt 55.3 kg
[2024-08-03 22:02] VITALS: TEMP 98.5
[2024-08-04 00:40] LABS: BASO # 0.1 10^3/uL (0.0-0.2); BASO % 0.6 % (0.0-1.0); EOS # 0.2 10^3/uL (0.0-0.5); HEMATOCRIT 31.4 % (36.0-47.0); HEMOGLOBIN 9.6 g/dl (12.0-15.5); LYMPH # 0.9 10^3/uL (1.5-5.0); LYMPH % 8.2 % (24.0-44.0); MEAN CORPUSCULAR HEMOGLOBIN 24.9 pg (27.0-33.0); MEAN CORPUSCULAR HGB CONC 30.6 g/dl (32.0-36.5); MEAN CORPUSCULAR VOLUME 81.3 fl (80.0-96.0); MONO % 9.5 % (2.0-8.0); NEUTROPHILS # 8.5 10^3/uL (1.5-8.5); PLATELET COUNT, AUTOMATED 271 10^3/uL (150-450); RED BLOOD COUNT 3.86 10^6/uL (4.00-5.40); WHITE BLOOD COUNT 10.8 10^3/uL (4.0-10.0)
[2024-08-04 00:50] LABS: CALCIUM LEVEL 9.4 MG/DL (8.3-10.6); CREATININE FOR GFR 1.14 MG/DL (0.55-1.30); GLOMERULAR FILTRATION RATE 48.4 (>32); MAGNESIUM LEVEL 1.8 MG/DL (1.8-2.4); POTASSIUM SERUM 3.5 MMOL/L (3.5-5.1)
[2024-08-04 00:53] LABS: THYROID STIMULATING HORMONE 0.064 uIU/ML (0.55-4.78)
[2024-08-04] MEDS: LIDOCAINE 2% MDV 20ML VIAL SC ONE (01:46)
[2024-08-04] MEDS: BOOSTRIX VACCINE (TETANUS/DIPHTH/ACEL. PERTUSSIS) 0.5ML SYR IM.IMMUN ONE (04:13)
[2024-08-04 04:16] VITALS: BP 144/63; O2SAT 98
== END 2024-08-04 04:24 | disposition home or self-care (01) ==
LOC: M ED 21:48
DX: S52.551A Other extraarticular fracture of lower end of right radius, initial encounter for closed fracture (principal); S00.11XA Contusion of right eyelid and periocular area, initial encounter; W01.198A Fall on same level from slipping, tripping and stumbling with subsequent striking against other object, initial encounter; M85.841 Other specified disorders of bone density and structure, right hand; M50.31 Other cervical disc degeneration, high cervical region; M85.89 Other specified disorders of bone density and structure, multiple sites; Y92.009 Unspecified place in unspecified non-institutional (private) residence as the place of occurrence of the external cause; Y93.89 Activity, other specified; Y99.9 Unspecified external cause status; Z88.0 Allergy status to penicillin; Z91.040 Latex allergy status; Z79.82 Long term (current) use of aspirin; Z79.1 Long term (current) use of non-steroidal anti-inflammatories (NSAID); Z79.899 Other long term (current) drug therapy; Z23 Encounter for immunization